=== PATIENT | female | born 1970 | race Caucasian/White ===

== ENCOUNTER → 2020-06-12 10:56 | Outpatient (CLI) | payer OTHER, SELFPAY ==
--- NOTE | ~2020-06-12 | US_ITS ---
EXAMINATION: US pelvic complete w TV DATE: 06/12/2020 11:36 INDICATION: Pelvic pain. Vaginal mass. TECHNIQUE: Multiple transabdominal and transvaginal sonographic images of the pelvis were obtained. COMPARISON: MRI 01/27/2020, CT 01/03/2020 FINDINGS: TRANSABDOMINAL ULTRASOUND: The uterus measures 7.9 x 2.9 x 4.1 cm. There is no free fluid in the pelvis. TRANSVAGINAL ULTRASOUND: The endometrial complex measures 3 mm in thickness. There is an intrauterine device in expected posit ion. The right ovary measures 2.1 x 1.3 x 2.0 cm. The left ovary measures 1.9 x 1.7 x 2.1 cm. There i s normal vascular flow in the ovaries. IMPRESSION: 1. Intrauterine device in expected position. 2. The synovial cyst extending inferior to the pubic symphysis on the prior CT and MRI is not visuali zed. Reviewed, dictated and finalized at location B. IMPRESSION: 1. Intrauterine device in expected position. 2. The synovial cyst extending inferior to the pubic symphysis on the prior CT and MRI is not visualized.
== END ==
PROVIDERS: PCP Physician Assistant Medical; Visit Provider Nurse Practitioner
DX: R19.09 Other intra-abdominal and pelvic swelling, mass and lump (principal); Z97.5 Presence of (intrauterine) contraceptive device
CPT/HCPCS: 76830; 76856